=== PATIENT | female | born 1955 | race Caucasian/White ===

== ENCOUNTER → 2021-05-15 | Day surgery (SDC) | payer OTHER ==
[~2021-05-15] VITALS: Ht 162.6 cm; Wt 105.8 kg
[~2021-05-15] MED LIST: CELEXA20 MG PO; LASIX20 MG PO; PRAVACHOL20 MG PO; PRILOSEC20 MG PO; PRINIVIL20 MG PO; REQUIP1 MG PO; RISPERDAL2 MG PO; SEROQUEL 100MG100 MG PO; SEROQUEL 25MG T25 MG PO; SINEQUAN50 MG PO; SYNTHROID125 MCG PO; VITAMIN D31250 MC1 PO; WAL-ZYR10 M1 PO; ZANTAC150 MG PO; ZOLOFT50 MG PO; [UNRECOGNIZED DRUG - OTHER] PO
== END | disposition home or self-care (01) ==
LOC: FAS 07:30
DX: D12.6 Benign neoplasm of colon, unspecified (principal); J44.9 Chronic obstructive pulmonary disease, unspecified; E11.9 Type 2 diabetes mellitus without complications; F41.9 Anxiety disorder, unspecified; M19.90 Unspecified osteoarthritis, unspecified site; F31.9 Bipolar disorder, unspecified; E03.9 Hypothyroidism, unspecified; K21.9 Gastro-esophageal reflux disease without esophagitis; I10 Essential (primary) hypertension; E78.00 Pure hypercholesterolemia, unspecified; Z86.010 Personal history of colon polyps; Z88.5 Allergy status to narcotic agent; Z91.040 Latex allergy status; Z79.899 Other long term (current) drug therapy
CPT/HCPCS: J2704; J7120